=== PATIENT | female | born 1960 | race Caucasian/White ===

== ENCOUNTER 2020-04-26 09:44 | Day surgery (SDC) | payer OTHER, SELFPAY ==
[~2020-04-26] VITALS: Ht 160 cm; Wt 92.5 kg
[2020-04-26] MEDS ORDERED: LIDOCAINE 1% 500 MG/50 ML VIAL ONE (11:28)
[2020-04-26] MEDS ORDERED: BUPIVACAINE-MPF/EPI 0.5% 30 ML VIAL INJ ONE (11:29)
[2020-04-26] MEDS ORDERED: MIDAZOLAM 2 MG/2 ML VIAL ONE (11:55)
[2020-04-26] MEDS ORDERED: fentaNYL citrate 0.05 MG/ML VIAL ONE (11:55)
[2020-04-26] MEDS ORDERED: PROPOFOL 200 MG/20 ML VIAL IV ONE (11:55)
[2020-04-26] MEDS ORDERED: KETOROLAC 30 MG/ML VIAL ONE (11:55)
[2020-04-26] MEDS ORDERED: DEXAMETHASONE 4 MG/ML VIAL ONE (11:55)
[2020-04-26] MEDS ORDERED: SEVOFLURANE 250 ML BTL INH ONE (11:55)
[2020-04-26] MEDS ORDERED: HYDROmorphone 1 MG/ML AMP IVP PRN ×2 (12:40→13:05)
[2020-04-26] MEDS ORDERED: ONDANSETRON 4 MG/2 ML VIAL IVP PRN (12:40)
[2020-04-26] MEDS ORDERED: diphenhydrAMINE 50 MG/ML VIAL IVP PRN (12:40)
[2020-04-26] MEDS ORDERED: MEPERIDINE 25 MG/ML SYR IVP PRN (12:40)
[2020-04-26] MEDS ORDERED: NACL 0.9% 1,000 ML IV SCH (12:40)
[2020-04-26] MEDS ORDERED: BLOOD GLUCOSE MONITORING 1 DEV DEV FS SCH (12:40)
[2020-04-26] MEDS ORDERED: ONDANSETRON 4 MG/2 ML VIAL IV PRN (13:05)
[2020-04-26] MEDS ORDERED: HYDROcodone/APAP 5/325 MG 1 TAB TAB PO PRN (13:05)
[2020-04-26] MEDS ORDERED: MORPHINE SULFATE 2 MG/ML SYR IVP PRN (13:05)
[2020-04-26] MEDS ORDERED: MORPHINE SULFATE 4 MG/ML SYR IV PRN (13:05)
== END 2020-04-26 14:30 | disposition home or self-care (01) ==
LOC: MFCC 09:44 → MDS 09:44
PROVIDERS: ATTEND Surgery
DX: R59.0 Localized enlarged lymph nodes (principal); I10 Essential (primary) hypertension; E11.9 Type 2 diabetes mellitus without complications; E66.9 Obesity, unspecified; F41.9 Anxiety disorder, unspecified; Z20.828 Contact with and (suspected) exposure to other viral communicable diseases
CPT/HCPCS: 38510; 71045; 93005; J0690; J1100; J1885; J2001; J2250; J2704; J3010; J3490; J7060; U0003